=== PATIENT | male | born 1950 | race Caucasian/White ===

== ENCOUNTER 2018-09-04 19:03 | Emergency (ER) | payer OTHER, MEDICAID ==
--- NOTE | 2018-09-04 19:08 | EDPHY ---
H & P Time Seen by Provider: 09/04/18 19:06 HPI/ROS: CHIEF COMPLAINT: Intoxication HISTORY OF PRESENT ILLNESS: Patient is a 68-year-old homeless man who is brought to the emergency department by EMS for intoxication. He was at the homeless residential but was intoxicated and they called EMS. EMS felt that he could not walk on his own and so brought him here. The patient has no complaints. He does not wish to be here. He denies pain or injury. No recent illness. Vital signs of blood sugar normal for EMS. Severity: Moderate Modifying factors: None REVIEW OF SYSTEMS: Unable to obtain secondary to condition EXAM: GENERAL: Well-appearing, intoxicated and in no acute distress. HEAD: Atraumatic, normocephalic. EYES: Pupils equal round and reactive to light, extraocular movements intact, sclera anicteric, conjunctiva are normal. ENT: TMs normal, nares patent, oropharynx clear without exudates. Moist mucous membranes. NECK: Normal range of motion, supple without lymphadenopathy or JVD. LUNGS: Breath sounds clear to auscultation bilaterally and equal. No wheezes rales or rhonchi. HEART: Regular rate and rhythm without murmurs, rubs or gallops. ABDOMEN: Soft, nontender, normoactive bowel sounds. No guarding, no rebound. No masses appreciated. BACK: No CVA tenderness, no spinal tenderness, step-offs or deformities EXTREMITIES: Normal range of motion, no pitting or edema. No clubbing or cyanosis. NEUROLOGICAL: Cranial nerves II through XII grossly intact. Slightly slurred speech, slightly unsteady gait. 5/5 strength, normal movement in all extremities, normal sensation, normal reflexes PSYCH: Normal mood, normal affect. SKIN: Warm, dry, normal turgor, no visible rashes or lesions. Source: Patient, EMS Exam Limitations: Intoxication - Medical/Surgical History Hx Asthma: No Hx Chronic Respiratory Disease: No Hx Diabetes: No Hx Cardiac Disease: No Hx Renal Disease: No Hx Cirrhosis: No Hx Alcoholism: Yes Hx HIV/AIDS: No Hx Splenectomy or Spleen Trauma: No Other PMH: unknown - Family History Significant Family History: No pertinent family hx - Social History Smoking Status: Unknown if ever smoked Alcohol Use: Heavy Constitutional: Initial Vital Signs Heart Rate 87 09/04/18 19:18 Respiratory Rate 16 09/04/18 19:18 Blood Pressure 177/113 H 03/16/19 19:18 O2 Sat (%) 98 09/04/18 19:18 O2 Delivery Mode Room Air Allergies/Adverse Reactions: ARB-Angiotensin Receptor Antagonist Allergy (Severe, Verified 09/05/18 05:46) Swelling/neck,face,throat lisinopril Allergy (Severe, Verified 09/05/18 05:46) arb Allergy (Uncoded 09/05/18 05:46) Home Medications: Medication Instructions Recorded NK [No Known Home Meds] 10/29/16 Fluticasone Nasal [Flonase Nasal 1 - 2 sprays NASAL BID PRN 05/13/18 [place]] Omeprazole 20 mg PO DAILY 05/13/18 Acetaminophen [Tylenol 325mg (*)] 650 mg PO Q4HRS PRN tab 05/20/18 Calcium Carbonate [Oyster Shell 500 mg PO BIDMEAL tab 05/20/18 Calcium 500 mg (*)] Calcium Carbonate [Tums 500MG (*)] 500 mg PO TID PRN tab.chew 05/20/18 Metoprolol Tartrate [Lopressor 25 25 mg PO BID #60 tab 05/20/18 mg (*)] Nicotine [Nicoderm Cq 21 mg (*)] 21 mg TD DAILY patch 05/20/18 Thiamine HCl [Vitamin B-1] 100 mg PO DAILY tab 05/20/18 Medical Decision Making ED Course/Re-evaluation: Patient is awake and alert. He has no complaints. He is able to ambulate. Will discharge at this time. Differential Diagnosis: Partial list of the Differential diagnosis considered include but were not limited to; intoxication, polysubstance abuse and although unlikely based on the history and physical exam, I also considered head injury, infection. Departure - Departure Disposition: Home, Routine, Self-Care Clinical Impression: Alcoholic intoxication Qualifiers: Complication of substance-induced condition: uncomplicated Qualified Code(s): F10.920 - Alcohol use, unspecified with intoxication, uncomplicated Condition: Fair Instructions: Alcohol Intoxication (ED) Referrals: Patient,NotPresent [Unknown] - As per Instructions [facility],. [Clinic] - As per Instructions
[2018-09-04 19:20] VITALS: BP 177/113
== END 2018-09-04 20:02 | disposition home or self-care (01) ==
LOC: EDUNIT#
DX: F10.920 Alcohol use, unspecified with intoxication, uncomplicated (principal); Z59.0 Homelessness

== ENCOUNTER 2018-09-05 05:36 | Emergency (ER) | payer OTHER, MEDICAID ==
[2018-09-05] MEDS ORDERED: chlordiazePOXIDE 25 MG CAP ONE (05:43)
[2018-09-05] MEDS ORDERED: CHLORDIAZEPOXIDE 25MG PREPK#6 BTL TAKEHOME ONE ×2 (05:43→05:48)
[2018-09-05] MEDS ORDERED: chlordiazePOXIDE 25 MG CAP PO ONE (05:48)
[2018-09-05] MEDS ORDERED: IPRATROPIUM/ALBUTEROL 3 ML DEYVIAL ONE (06:35)
[2018-09-05] MEDS ORDERED: IPRATROPIUM/ALBUTEROL 3 ML DEYVIAL IH ONE ×2 (06:37→06:39)
[2018-09-05] MEDS ORDERED: ALBUTEROL INH PREPACK MDI TAKEHOME ONE (06:57)
--- NOTE | 2018-09-05 06:57 | EDPHY ---
H & P Stated Complaint: "can't walk" pt ambulatory without assist. Pt has congested cough, ETOH Time Seen by Provider: 09/05/18 05:41 HPI/ROS: HPI The patient presents with concern for alcohol withdrawal, brought [facility] ambulance [facility] because of difficulty walking. According to the paramedics the patient was unstable on his feet and somewhat tremulous. The patient is able to walk here and has been standing without difficulty. He says that he does feel like he is withdrawing from alcohol and had about 10 drinks yesterday. He has not had any falls. He is complaining of a cough which is productive which has been present for several months. He was admitted to the hospital in April and had an aspiration pneumonia requiring intubation. He has not had any fever or shortness of breath.. He was seen in the emergency department yesterday for alcohol intoxication and was discharged to the [facility]. REVIEW OF SYSTEMS 10 systems were reviewed and negative with the exception of the elements mentioned in the history of present illness. PMHx: History of aspiration pneumonia causing hypoxemic respiratory failure requiring intubation in April of 2018 Soc Hx: Homeless, history of alcohol abuse PHYSICAL General Appearance: Alert, no distress Eyes: Pupils equal and round no pallor or injection ENT, Mouth: Mucous membranes moist Respiratory: There are no retractions, lungs are clear to auscultation Cardiovascular: Regular rate and rhythm Gastrointestinal: Abdomen is soft and non-tender, no masses, bowel sounds normal Neurological: A&O, moves all extremities, tongue wag is present, slight hand tremor Skin: Warm and dry, no rashes Musculoskeletal: Neck is supple non tender Extremities: symmetrical, full range of motion Psychiatric: Patient is oriented X 3, there is no agitation Source: Patient, EMS, Old records Exam Limitations: No limitations - Personal History Current Tetanus/Diphtheria Vaccine: Yes Current Tetanus Diphtheria and Acellular Pertussis (TDAP): Yes - Medical/Surgical History Hx Asthma: No Hx Chronic Respiratory Disease: No Hx Diabetes: No Hx Cardiac Disease: No Hx Renal Disease: No Hx Cirrhosis: No Hx Alcoholism: Yes Hx HIV/AIDS: No Hx Splenectomy or Spleen Trauma: No Other PMH: alcoholism - Social History Smoking Status: Unknown if ever smoked Constitutional: Initial Vital Signs Temperature (C) 36.8 C 09/05/18 05:47 Heart Rate 105 H 09/05/18 05:47 Respiratory Rate 20 09/05/18 05:47 Blood Pressure 166/108 H 09/05/18 05:47 O2 Sat (%) 90 L 09/05/18 05:47 O2 Delivery Mode Room Air Allergies/Adverse Reactions: ARB-Angiotensin Receptor Antagonist Allergy (Severe, Verified 09/05/18 05:46) Swelling/neck,face,throat lisinopril Allergy (Severe, Verified 09/05/18 05:46) arb Allergy (Uncoded 09/05/18 05:46) Home Medications: Medication Instructions Recorded NK [No Known Home Meds] 10/29/16 Fluticasone Nasal [Flonase Nasal 1 - 2 sprays NASAL BID PRN 05/13/18 [place]] Omeprazole 20 mg PO DAILY 05/13/18 Acetaminophen [Tylenol 325mg (*)] 650 mg PO Q4HRS PRN tab 05/20/18 Calcium Carbonate [Oyster Shell 500 mg PO BIDMEAL tab 05/20/18 Calcium 500 mg (*)] Calcium Carbonate [Tums 500MG (*)] 500 mg PO TID PRN tab.chew 05/20/18 Metoprolol Tartrate [Lopressor 25 25 mg PO BID #60 tab 05/20/18 mg (*)] Nicotine [Nicoderm Cq 21 mg (*)] 21 mg TD DAILY patch 05/20/18 Thiamine HCl [Vitamin B-1] 100 mg PO DAILY tab 05/20/18 Medical Decision Making - Diagnostics Imaging Results: Chest x-ray two views shows no infiltrate, no effusion, interpreted by me, radiology interpretation is pending. Imaging: I viewed and interpreted images myself Differential Diagnosis: This is a 68-year-old male with history of homelessness, alcohol abuse, aspiration pneumonia who presents brought in by ambulance from the [facility] because of difficulty walking. Here, we have observed him walking without difficulty. He has a normal gait. He has not had any falls. As he does appear to be in alcohol withdrawal with mild tachycardia, hypertension, hand tremor. I will give him a dose of Librium for this. He is also complaining of a cough which she has had for several months. I have performed a chest x-ray and this is unremarkable. He improved after receiving a DuoNeb. His oxygen saturation is about 90%. As he was admitted for an aspiration pneumonia requiring intubation, he may be still recovering from this. I will discharge him with an albuterol inhaler as well as Librium. He can return to the [facility]. - Data Points Medications Given: Discontinued Medications Albuterol/Ipratropium (Duoneb) 3 ml IH EDNOW ONE Stop: 09/05/18 06:38 Last Admin: 09/05/18 06:38 Dose: 3 ml Chlordiazepoxide (Librium 25 Mg Prepack#6) 1 btl TAKEHOME EDNOW ONE Stop: 09/05/18 05:49 Last Admin: 09/05/18 05:51 Dose: 1 btl Chlordiazepoxide HCl (Librium) 50 mg PO EDNOW ONE Stop: 09/05/18 05:49 Last Admin: 09/05/18 05:51 Dose: 50 mg Departure - Departure Disposition: Home, Routine, Self-Care Clinical Impression: Cough Alcohol withdrawal Qualifiers: Complication of substance-induced condition: uncomplicated Qualified Code(s): F10.230 - Alcohol dependence with withdrawal, uncomplicated Condition: Good Instructions: Chlordiazepoxide/Clidinium (By mouth), Albuterol (By breathing), Alcohol Withdrawal (ED) Additional Instructions: Please return to the emergency department if your worse in any way. Referrals: [facility] [Outside] - As per Instructions [facility],. [Clinic] - As per Instructions
[2018-09-05 07:13] VITALS: BP 149/64
== END 2018-09-05 07:13 | disposition home or self-care (01) ==
LOC: EDUNIT#
DX: R05 Cough (principal); R91.1 Solitary pulmonary nodule; F10.230 Alcohol dependence with withdrawal, uncomplicated; Z87.01 Personal history of pneumonia (recurrent); Z59.0 Homelessness

== ENCOUNTER 2018-09-13 16:38 | Inpatient (IN) | payer OTHER, MEDICAID ==
[2018-09-13] MEDS ORDERED: LORazepam 2 MG/ML INJ ONE (16:50)
[2018-09-13] MEDS ORDERED: ONDANSETRON 4 MG/2 ML VIAL ONE (16:51)
[2018-09-13] MEDS ORDERED: NS 1,000 ML IV ONE ×2 (17:00→17:10)
[2018-09-13] MEDS ORDERED: LORazepam 2 MG/ML INJ IVP ONE (17:00)
[2018-09-13] MEDS ORDERED: ONDANSETRON 4 MG/2 ML VIAL IVP ONE (17:00)
--- NOTE | 2018-09-13 17:05 | EDPHY ---
H & P Stated Complaint: N/V/D x 1 week and CP just [employer] Time Seen by Provider: 09/13/18 16:50 HPI/ROS: CHIEF COMPLAINT: Nausea, vomiting, and diarrhea HISTORY OF PRESENT ILLNESS: This is a 68-year-old male with a history of alcohol abuse referred to the emergency department from [facility] where he was initially evaluated. He was transported by ambulance. The patient is complaining of nausea, vomiting and diarrhea for the past week. Reportedly at [facility] he was noted to have a systolic blood pressure of 80, 90 over 42 in the ambulance. Patient tells me that he was started on lisinopril for hypertension about 6 days ago. He takes it in the morning but thinks that he might have vomited after taking this medicine. Patient tells me that he has not had any alcohol for the past 7 or 8 days. He reports drinking 5-6 drinks daily prior to that. He has been seen in this emergency department in the past with alcohol intoxication. He is on domicile. Patient also tells me that he has a recent history of pneumonia but had a clear chest x-ray sometime within the last week or so. When the patient arrives here is noted to have a blood pressure of 136/87. While in the ambulance he reported lower substernal chest pain (versus midepigastric pain). He described the same to me and also reported some pain into his left shoulder and jaw. He has no known cardiac history. REVIEW OF SYSTEMS: A ten system review of systems was performed and is negative with the exception of the items mentioned in the HPI. Past medical history: 1. Alcohol abuse 2. Hypertension Past surgical history: Family history: Social history: He is on domicile. Has a history of alcohol abuse. He does not use tobacco products. General Appearance: Alert. Vital signs reviewed. Blood pressure 136/87, heart rate 110. Eyes: Pupils equal and round, no conjunctival injection, no discharge. Anicteric. ENT, Mouth: Mucous membranes are dry, no oropharyngeal erythema or edema. Neck: No lymphadenopathy, supple. Respiratory: Lungs are clear to auscultation; no wheezes, rales, or rhonchi. Cardiovascular: Regular rate and rhythm; no murmur, rub, or gallop. Gastrointestinal: Abdomen is soft and nontender, no masses or organomegaly, bowel sounds normal. Skin: Warm and dry, no rashes on exposed skin, normal color. Back: Nontender to palpation over the thoracolumbar spine. No CVAT. Extremities: No lower extremity edema, no calf tenderness or swelling. Neurological: Alert and oriented. Moving all four extremities easily and equally. Psychiatric: Normal affect. - Personal History Current Tetanus Diphtheria and Acellular Pertussis (TDAP): Unsure - Medical/Surgical History Hx Asthma: No Hx Chronic Respiratory Disease: No Hx Diabetes: No Hx Cardiac Disease: No Hx Renal Disease: No Hx Cirrhosis: No Hx Alcoholism: Yes Hx HIV/AIDS: No Hx Splenectomy or Spleen Trauma: No Other PMH: alcoholism, HTN - Social History Smoking Status: Former smoker Constitutional: Initial Vital Signs Temperature (C) 36.9 C 09/13/18 16:48 Heart Rate 110 H 09/13/18 16:48 Respiratory Rate 16 09/13/18 16:48 Blood Pressure 136/87 H 09/13/18 16:48 O2 Sat (%) 94 09/13/18 16:48 O2 Delivery Mode Nasal Cannula O2 (L/minute) 2 Allergies/Adverse Reactions: No Known Allergies Allergy (Unverified 09/13/18 17:17) Home Medications: Medication Instructions Recorded FLUoxetine [Prozac 20 MG (*)] 20 mg PO DAILY 09/13/18 Lisinopril [Zestril 20 mg (*)] 20 mg PO DAILY 09/13/18 Medical Decision Making - Diagnostics EKG Interpretation: 12 lead EKG is interpreted in [place] by emergency department physician. It shows sinus tachycardia with a rate of 107. No acute ischemic changes. I also reviewed 2nd EKG that was performed. There were no significant changes between the 2. ED Course/Re-evaluation: 68-year-old male with nausea, vomiting, diarrhea for the past week. As a result he has not had any alcohol during that time. Abdominal exam is unremarkable. He was not hypotensive on arrival. [facility]orted[facility]. He was tachycardic. I am concerned about the possibility of withdrawal. However, he also complained of chest pain. EKG without ischemic changes. He has a slightly elevated troponin 0.11. When he complained of some pain extending into his jaw a repeat EKG was performed and is unchanged. In addition, he has an elevated D-dimer at 4.6. Unfortunately, his creatinine is 4.1. I think that CT angiogram with IV contrast would be ill advised that he may require testing for PE. He is not hypoxic. Chest x-ray is without evidence of infiltrate. He is being admitted to the hospital for evaluation of above problems. He has not vomited in the department. It is certainly possible that what he is describing his chest pain is actually midepigastric or upper abdominal pain. LFTs and lipase are relatively unremarkable. Troponin will need to be trended. As above, troponin mildly elevated at 0.11. This could be related to his elevated creatinine, rather than indicative of cardiac injury. Has been tachycardic. It is unclear whether or not his kidney injury is related to his recent GI illness and dehydration. He was recently started on lisinopril, which could be the culprit. He has acute kidney injury with a creatinine of 4.1. He has not had vomiting or diarrhea in the emergency department. His abdomen is nontender at the time of my exam is. He was serially examined. This illness could have been a gastroenteritis. Again, alcohol withdrawal is a strong consideration in this patient who has a long history of alcohol dependence. Differential Diagnosis: Chest pain including but not limited to myocardial ischemia, pulmonary embolus, chest wall pain, pleural inflammation and pulmonary infectious causes. - Data Points Laboratory Results: Laboratory Results 09/13/18 16:45 09/13/18 16:45 Medications Given: Acetaminophen (Tylenol) 650 mg PO Q4HRS PRN PRN Reason: Pain, Mild/Fever, Can Take PO Stop: 03/12/19 17:58 Last Admin: 09/14/18 09:45 Dose: 650 mg Aspirin (Aspirin) 325 mg PO DAILY JYOTI Stop: 03/12/19 17:59 Last Admin: 09/14/18 09:39 Dose: 325 mg Folic Acid (Folic Acid) 1 mg PO DAILY JYOTI Stop: 03/13/19 08:59 Last Admin: 09/14/18 09:39 Dose: 1 mg Heparin Sodium (Porcine) (Heparin Sc Injection) 5,000 unit SC Q8HRS JYOTI Stop: 03/12/19 21:59 Last Admin: 09/14/18 13:11 Dose: 5,000 unit Famotidine/Sodium Chloride (Pepcid 20 Mg (Premix)) 50 mls @ 200 mls/hr IV HS JYOTI Stop: 03/12/19 20:59 Last Admin: 09/13/18 22:18 Dose: 50 mls Sodium Chloride (Ns) 1,000 mls @ 150 mls/hr IV CONT JYOTI Stop: 03/12/19 17:59 Last Admin: 09/14/18 14:54 Dose: 1,000 mls Thiamine HCl 500 mg/ Sodium (Chloride) 105 mls @ 210 mls/hr IV DAILY JYOTI Stop: 09/15/18 09:29 Last Admin: 09/14/18 09:40 Dose: 105 mls Lorazepam (Ativan Injection) 0 mg IVP Q1H PRN; Protocol PRN Reason: Alcohol Withdrawal w/IV access Stop: 03/12/19 17:58 Last Admin: 09/14/18 11:15 Dose: 2 mg Multivitamins (Tab-A-Ole) 1 each PO DAILY JYOTI Stop: 03/13/19 08:59 Last Admin: 09/14/18 09:39 Dose: 1 each Nitroglycerin (Nitrostat) 0.4 mg SL Q5M PRN PRN Reason: Chest Pain Stop: 03/12/19 17:58 Last Admin: 09/13/18 18:59 Dose: 1 tab Discontinued Medications Sodium Chloride (Ns) 1,000 mls @ 0 mls/hr IV ONCE ONE PRN Reason: Wide Open Stop: 09/13/18 17:01 Last Admin: 09/13/18 17:01 Dose: 1,000 mls Sodium Chloride (Ns) 1,000 mls @ 0 mls/hr IV EDNOW ONE; Wide Open PRN Reason: Protocol Stop: 09/13/18 17:11 Last Admin: 09/13/18 17:35 Dose: 1,000 mls Lorazepam (Ativan Injection) 1 mg IVP EDNOW ONE Stop: 09/13/18 17:01 Last Admin: 09/13/18 17:01 Dose: 1 mg Ondansetron HCl (Zofran) 4 mg IVP EDNOW ONE Stop: 09/13/18 17:01 Last Admin: 09/13/18 17:01 Dose: 4 mg Point of Care Test Results: Chemistry 09/13/18 16:58 POC Troponin I 0.11 ng/mL H ng/mL (0.00-0.08) Departure - Departure Disposition: [facility] Clinical Impression: Acute kidney injury Chest pain Qualifiers: Chest pain type: unspecified Qualified Code(s): R07.9 - Chest pain, unspecified Condition: Fair
[2018-09-13 17:13] LABS: PLATELET COUNT 173 10^3/uL (150-400)
[2018-09-13] MEDS ORDERED: MAG HYDROX/AL HYDROX/SIMETH 30 ML UDCUP PO PRN (17:59)
[2018-09-13] MEDS ORDERED: NITROGLYCERIN 0.4 MG BTL SL PRN (17:59)
[2018-09-13] MEDS ORDERED: oxyCODONE IR 5 MG TAB PO PRN (17:59)
[2018-09-13] MEDS ORDERED: HYDROmorphONE/DILAUDID 1 MG/ML INJ IVP PRN (17:59)
[2018-09-13] MEDS ORDERED: LORazepam 2 MG/ML INJ IVP PRN (17:59)
[2018-09-13] MEDS ORDERED: FLUMAZENIL 0.5 MG/5 ML MDV IVP PRN (17:59)
[2018-09-13] MEDS ORDERED: PROMETHAZINE HCL 25 MG/ML INJ IVP PRN (17:59)
[2018-09-13] MEDS ORDERED: ONDANSETRON DISINTEGRATING 4 MG TAB PO PRN (17:59)
[2018-09-13] MEDS ORDERED: ONDANSETRON 4 MG/2 ML VIAL IVP PRN (17:59)
[2018-09-13] MEDS: ASPIRIN 325 MG TAB PO SCH (18:25)
--- NOTE | 2018-09-13 18:29 | PDGENHP ---
History and Physical - Chief Complaint n/v/d/chest pain - History of Present Illness 68 yo M with PMH of HTN, homelessness and alcohol abuse sent here from [facility] where he presented complaining of nausea, vomiting and diarrhea for one week. He notes that he has been unable to eat or drink at all for a week, states he has not been able to hold anything down. He also has not had alcohol for the last week per his report due to not being able to eat or drink. He went to [facility] for this today and they felt he required ER evaluation due to low BP while in clinic (reportedly 80s systolic, though systolics of 130 on arrival here) and he was sent here in an ambulance. He notes that en route in the ambulance he developed chest versus upper abdominal and left shoulder pain that has been present since he arrived. He denies any fever or chills, he denies any pain with urination but notes that he has not been urinating very much today or recently--he thinks he urinated with his last BM but really can't tell me when that was but states it was today. He is somewhat somnolent and his speech is a bit slurred on my evaluation, he denies any withdrawal symptoms currently although he has had severe withdrawal in the past. He does take lisinopril for HTN and states he has been taking his BP meds though he is confused so unclear if he is answering appropriately. History Information - Allergies/Home Medication List Allergies/Adverse Reactions: No Known Allergies Allergy (Unverified 09/13/18 17:17) Home Medications: FLUoxetine [Prozac 20 MG (*)] 20 mg PO DAILY 09/13/18 [Last Taken Unknown] Lisinopril [Zestril 20 mg (*)] 20 mg PO DAILY 09/13/18 [Last Taken Unknown] I have personally reviewed and updated: family history, medical history, social history, surgical history - Past Medical History hypertension, psychiatric history Additional medical history: alcohol abuse and withdrawal. alcoholic hepatitis - Surgical History Reports: no pertinent surgical hx - Family History Positive for: non-pertinent - Social History Smoking Status: Former smoker Alcohol Use: Heavy Drug Use: None Additional social history: homeless, resides in group home Review of Systems Review of Systems: ROS: 10pt was reviewed & negative except for what was stated in HPI & below Physical Exam Physical Exam: Temp Pulse Resp BP Pulse Ox 36.9 C 110 H 16 136/87 H 94 09/13/18 16:48 09/13/18 16:48 09/13/18 16:48 09/13/18 16:48 09/13/18 16:48 Constitutional: chronically ill appearing, unkempt Eyes: PERRL, anicteric sclera Ears, Nose, Mouth, Throat: poor dentition, dry mucous membranes Cardiovascular: no murmur, rub, or gallop, tachycardia, No edema Respiratory: no respiratory distress, reduced air movement Gastrointestinal: normoactive bowel sounds, tenderness, No guarding, No rebound Genitourinary: no bladder tenderness Skin: warm, normal color Musculoskeletal: full muscle strength Neurologic: CN II-XII Intact, No AAOx3 Psychiatric: encephalopathic Lab Data & Imaging Review 09/13/18 16:45 09/13/18 16:45 WBC 13.39 10^3/uL (3.80-9.50) H 09/13/18 16:45 RBC 4.73 10^6/uL (4.40-6.38) 09/13/18 16:45 Hgb 16.0 g/dL (13.7-17.5) 09/13/18 16:45 Hct 46.8 % (40.0-51.0) 09/13/18 16:45 MCV 98.9 fL (81.5-99.8) 09/13/18 16:45 MCH 33.8 pg (27.9-34.1) 09/13/18 16:45 MCHC 34.2 g/dL (32.4-36.7) 09/13/18 16:45 RDW 14.6 % (11.5-15.2) 09/13/18 16:45 Plt Count 173 10^3/uL (150-400) 09/13/18 16:45 MPV 11.8 fL (8.7-11.7) H 09/13/18 16:45 Neut % (Auto) Not Reported 09/13/18 16:45 Lymph % (Auto) Not Reported 09/13/18 16:45 Screven % (Auto) Not Reported 09/13/18 16:45 Eos % (Auto) Not Reported 09/13/18 16:45 Baso % (Auto) Not Reported 09/13/18 16:45 Nucleat RBC Rel Count Not Reported 09/13/18 16:45 Absolute Neuts (auto) Not Reported 09/13/18 16:45 Absolute Lymphs (auto) Not Reported 09/13/18 16:45 Absolute Monos (auto) Not Reported 09/13/18 16:45 Absolute Eos (auto) Not Reported 09/13/18 16:45 Absolute Basos (auto) Not Reported 09/13/18 16:45 Absolute Nucleated RBC Not Reported 09/13/18 16:45 Immature Gran % Not Reported 09/13/18 16:45 Seg Neutrophils % 63.0 % 09/13/18 16:45 Band Neutrophils % 15.0 % 09/13/18 16:45 Lymphocytes % 15.0 % 09/13/18 16:45 Monocytes % 7.0 % 09/13/18 16:45 Eosinophils % 0.0 % 09/13/18 16:45 Basophils % 0.0 % 09/13/18 16:45 Metamyelocytes % 0.0 % 09/13/18 16:45 Myelocytes % 0.0 % 09/13/18 16:45 Promyelocytes % 0.0 % 09/13/18 16:45 Blast Cells % 0.0 % 09/13/18 16:45 Immature Gran # Not Reported 09/13/18 16:45 Absolute Seg Neuts 8.44 10^3/uL (1.70-6.50) H 09/13/18 16:45 Absolute Band Neuts 2.01 10^3/uL (0.00-0.70) H 09/13/18 16:45 Absolute Lymphocytes 2.01 10^3/uL (1.00-3.00) 09/13/18 16:45 Absolute Monocytes 0.94 10^3/uL (0.30-0.80) H 09/13/18 16:45 Absolute Eosinophils 0.00 10^3/uL (0.03-0.40) L 09/13/18 16:45 Absolute Basophils 0.00 10^3/uL (0.02-0.10) L 09/13/18 16:45 Absolute Metamyelocyte 0.00 10^3/mL (0.00-0.00) 09/13/18 16:45 Absolute Myelocytes 0.00 10^3/mL (0.00-0.00) 09/13/18 16:45 Absolute Promyelocytes 0.00 10^3/uL (0.00-0.00) 09/13/18 16:45 Absolute Plasma Cells 0.00 10^3/uL (0.00-0.00) 09/13/18 16:45 Nucleated RBCs 0 /100 WBC (0-0) 09/13/18 16:45 Absolute Blast Cells 0.00 10^3/uL (0.00-0.00) 09/13/18 16:45 Plasma Cells % 0.0 % 09/13/18 16:45 Platelet Estimate ADEQUATE (ADEQ) 09/13/18 16:45 Hypochromasia 1+ H 09/13/18 16:45 Oval Macrocytes 2+ H 09/13/18 16:45 Stomatocytes 1+ H 09/13/18 16:45 D-Dimer 4.46 ug/mLFEU (0.00-0.50) H 09/13/18 16:45 Sodium 135 mEq/L (135-145) 09/13/18 16:45 Potassium 4.0 mEq/L (3.5-5.2) 09/13/18 16:45 Chloride 91 mEq/L (97-110) L 09/13/18 16:45 Carbon Dioxide 24 mEq/l (22-31) 09/13/18 16:45 Anion Gap 20 mEq/L (6-14) H 09/13/18 16:45 BUN 70 mg/dL (7-23) H 09/13/18 16:45 Creatinine 4.1 mg/dL (0.7-1.3) H 09/13/18 16:45 Estimated GFR 15 09/13/18 16:45 Glucose 92 mg/dL (70-100) 09/13/18 16:45 Calcium 9.6 mg/dL (8.5-10.4) 09/13/18 16:45 POC Troponin I 0.11 ng/mL (0.00-0.08) H 09/13/18 16:58 Visualized and Interpreted Chest x-ray results: Yes Chest X-Ray results: no infiltrate Visualized and Interpreted EKG results: Yes EKG additional interpertation: sinus tachycardia Assessment & Plan Assessment: 68 yo M with PMH of etoh abuse, homelessness presenting with c/o n/v/d x 1 week with NATALIA and more recent development of chest pain # n/v/d: present x 1 week without ability to tolerate PO per his report. Abdominal exam relatively benign but does have some upper abdominal tenderness. Will add LFTs, lipase, lactic acid to labs and check an abdominal plain film to r/o obstruction. GI pathogen panel ordered as well. IVF, NPO, antiemetics as needed. # natalia: creatinine of 4.1 in the setting of above with addition of being on lisinopril the likely etiology, reportedly was hypotensive at clinic but here has been normal to high. Will get bladder scan, UA, urine Na and creatinine and trend overnight with IVF overnight. If not improving as expected will need renal consultation in am. # chest pain: with elevated troponin on arrival of 0.1 although patient is reporting that the chest or upper abdominal pain just came on during transportation, ecg not clearly ischemic, will monitor in PCU on tele, trend troponin and serial ecg. Echo in am, cardiology consulted. D dimer significantly elevated at 4.5 but given NATALIA CTA not possible currently. At this point, do not have high suspicion for PE with no hypoxia and abrupt onset of chest/upper abdominal pain -legs without edema or signs of DVT so will hold off on US as well. Echo in am, consider VQ if echo w/signs of right heart strain. # metabolic encephalopathy: patient with difficulty maintaining alertness and some slurred speech, he denies recent alcohol use or withdrawal though has had severe withdrawal in the past. Other than speech slurring no focal neurological findings. Will check BAL, drug screen and start CIWA. Will get head CT given his hx of alcohol abuse and inability to provide much of a history regarding potential recent trauma etc. # HTN: holding lisinopril given NATALIA, will give PRN if sbp > 170 # IP status, will need > 48 hours stay for eval/mgmt of above Patient new to my care. Old records reviewed and summarized as above. Care plan reviewed with ER doctor as above.
--- NOTE | 2018-09-13 20:53 | CPEKG ---
Test Reason : OPEN Blood Pressure : / mmHG Vent. Rate : 107 BPM Atrial Rate : 107 BPM P-R Int : 134 ms QRS Dur : 091 ms QT Int : 329 ms P-R-T Axes : 067 058 031 degrees QTc Int : 439 ms Sinus tachycardia Probable left atrial enlargement Confirmed by Manuela Chilel ([id number]) on 09/13/2018 8:53:01 PM Referred By: MANUELA CHILEL Confirmed By:Manuela Chilel
[2018-09-13] MEDS: THIAMINE HCL 500 MG in NS 100 ML IV SCH (21:15)
[2018-09-13] MEDS: LORazepam 2 MG/ML INJ IVP PRN (21:16)
[2018-09-13] MEDS: HEPARIN 5,000 UNIT/0.5 ML INJ SC SCH (21:17)
[2018-09-13] MEDS: FAMOTIDINE 20 MG/NACL 50 ML IV SCH (22:18)
[2018-09-14] MEDS: LORazepam 2 MG/ML INJ IVP PRN ×2 (03:52→11:15)
[2018-09-14] MEDS: NS 1,000 ML IV SCH ×2 (03:52→14:54)
[2018-09-14 04:33] LABS: PLATELET COUNT 140 10^3/uL (150-400)
[2018-09-14] MEDS: HEPARIN 5,000 UNIT/0.5 ML INJ SC SCH ×3 (05:47→21:11)
[2018-09-14] MEDS ORDERED: ENOXAPARIN 40 MG/0.4 ML SYR SC SCH (09:00)
--- NOTE | 2018-09-14 09:00 | PDMN ---
Medical Necessity Medical necessity: Pt meets IP criteria per MD & MCG [id number]; est los >2 mn for eval/tx of acute renal failure w/metabolic encephalopathy, n/v/d, tachycardia & chest pain; admit for further workup/monitoring, Cardiology consult, possible Renal consult, IVFs & CIWA protocol; hx alcohol abuse & homelessness; per H&P & order 09/13/18
--- NOTE | 2018-09-14 09:20 | ASMTLACE ---
SHAD Acuity / Level of Answers: Yes Care: Did the patient have an inpatient admission? Comorbidities - select Answers: Other Notes: HTN all that apply # of Emergency department Answers: 5-8 visits in the last 6 months Social determinants Answers: History of substance abuse (ETOH, street drugs, prescription drugs, etc.) Homelessness (street, correction) Mental health diagnosis (anxiety, depression, pers onality disorders, etc.) Score: 17 Date Signed: 09/14/2018 09:19 AM Electronically Signed By:Marni Ferguson
[2018-09-14] MEDS: MULTIVITAMINS 1 EACH TAB PO SCH (09:39)
[2018-09-14] MEDS: ASPIRIN 325 MG TAB PO SCH (09:39)
[2018-09-14] MEDS: FOLIC ACID 1 MG TAB PO SCH (09:39)
[2018-09-14] MEDS: THIAMINE HCL 500 MG in NS 100 ML IV SCH (09:40)
[2018-09-14] MEDS: ACETAMINOPHEN 325 MG TAB PO PRN ×2 (09:45→21:12)
--- NOTE | 2018-09-14 12:40 | ECHO ---
[email or web address] [address] Main: [phone] Echocardiography Examination Name: HIEU STARKEY MR#: [id number] Study Date: 09/14/2018 Study Time: 11:44 AM Date of : 1950 Age: 68 year(s) Height: 170.2 cm (67 in.) Weight: 68.04 kg (150 lb.) BSA: 1.79 m2 Gender: Male Examination: Echo Contrast: Image Quality: Fair Rhythm: Heart Rate: BP: 89 mmHg/57 mmHg Indication: Elevated dimer/chest pain Procedure Staff Referring Physician: Excavator Operator: Reading Physician: Orestes Joy MD Requesting Provider: Indication: Elevated dimer/chest pain Measurements Chambers AV/MV Label Value Normal Value Label Value Normal Value EF lower range (%) 60 % AV PGmean 3 mmHg EF upper range (%) 65 % AV Vmax 1.25 m/s IVSd, 2D 1 cm (0.6cm - 1.1cm) MV A Vmax 0.96 m/s LVDd, 2D 4.7 cm (4.2cm - 5.9cm) MV E' lateral 0.05 m/s LVDs, 2D 2.6 cm (2.1cm - 4cm) MV E' mean 0.05 m/s LVPWd, 2D 0.8 cm (0.6cm - 1cm) MV E' septal 0.05 m/s LADs, 2D 2.4 cm (3cm - 4cm) MV E Vmax 0.76 m/s Additional Vessels MV E/A 0.79 Label Value Normal Value MV E/E' lateral 14.4 AoAsc 3.1 cm MV E/E' mean 15.2 AoRoot, MM 3.7 cm (2.2cm - 3.7cm) MV E/E' septal 14.9 (0.45 - 1.25) Conclusions Overall Conclusions: no pericardial effusion. Concentric left ventricular hypertrophy with ejection fraction of 60-65%. Mild mitral regurgitation. Ascending aorta measures 3.1 cm. Findings Patient: HIEU STARKEY Study Date: 09/14/2018 Page 1 of 2 11:44 AM Left Ventricle: Diastolic dysfunction is indeterminate.. Normal global systolic left ventricular function. EF range is estimated at 60 % - 65 %. There is mild concentric left ventricular hypertrophy. Right Ventricle: Normal size right ventricle. Left Atrium: The left atrium is normal in size. Right Atrium: The right atrium is normal in size. Mitral Valve: Mild mitral annular calcification.. Mild mitral regurgitation. Aortic Valve: Aortic leaflets are structurally normal. The aortic valve is trileaflet. Tricuspid Valve: Tricuspid valve leaflets are structurally normal. Trivial tricuspid regurgitation. Aorta: The aortic root size in M-mode measures 3.7 cm. The ascending aorta measures 3.1 cm. Aorta Measurements AoRoot, MM is 3.7 cm. Pericardium: A pericardial fat pad is present. Exam Details Procedure Ordered: Echo Image Quality: Fair (No Signature Object) Patient: HIEU STARKEY Study Date: 09/14/2018 Page 2 of 2 11:44 AM [id number]
--- NOTE | 2018-09-14 13:12 | GCON ---
[f rep st] CONSULTATION CARDIOLOGY CONSULTATION REFERRING PHYSICIAN: Stacey Kumar MD INDICATION FOR CONSULTATION: Chest pain. HISTORY OF PRESENT ILLNESS: The patient is a 68-year-old gentleman with a past medical history of hy pertension, alcohol abuse, and homelessness, who presented to [facility] yesterday with complain ts of nausea, vomiting, and diarrhea x1 week. He reported that he was unable to eat or drink at all for the previous week. He states he has not had any alcohol in the last week secondary to his inabil ity to keep anything down. He was found to be hypotensive at [facility] and was subsequently br ought to [facility] via ambulance. In the ambulance, he complained of some upper abd ominal, as well as chest discomfort and left shoulder pain. Point of care troponin was mildly elevated at 0.11. Subsequent serial troponins were mildly elevated at 0.056 at 0020 hours this morning, and repeat troponin has trended down to 0.053 at 0330 hours thi s morning. Of note, these values are in the setting of acute renal failure with an initial creatinin e of 4.1, currently 3.0. Please note, at the time of my examination, he is markedly somnolent and unable to provide history. He is unable to stay awake for my exam or answer any questions appropriately, although he did deny an y complaints of chest pain or pressure. REVIEW OF SYSTEMS: Unobtainable secondary to somnolence. PAST MEDICAL HISTORY: Hypertension, alcohol abuse, alcoholic hepatitis admission in April 2018 wi th acute hypoxic respiratory failure, aspiration pneumonia, and homelessness. MEDICATIONS ON ADMISSION: Prozac 20 mg daily and lisinopril 20 mg daily. Uncertain of medical compl iance. ALLERGIES TO MEDICATION: No known allergies. SOCIAL HISTORY: He is homeless. He is an alcoholic. He has had multiple admissions over the last 2 years relating to his alcoholism. PHYSICAL EXAMINATION: VITAL SIGNS: Blood pressure currently 89/57. Previous blood pressure reading s were 129/72 and 140/84. Heart rate of 88 in sinus rhythm, respiratory rate of 16, oxygen saturatio n 95% on 1 L nasal cannula, and temperature 37.1. GENERAL: He is somnolent. He is arousable, but u nable to answer questions. NECK: There is no evidence of JVP or carotid bruits. LUNGS: Clear to a uscultation anteriorly. CARDIAC: S1 and S2. Regular rate and rhythm. No murmurs, rubs, or gallops . ABDOMEN: Soft. Bowel sounds are present. EXTREMITIES: There is no evidence of cyanosis, clubbi ng, or edema. LABORATORY DATA: Sodium of 137, potassium 3.8, BUN 70, and creatinine 3. AST 101 and ALT 63. Serum troponin was 0.056, trending down to 0.053. DATA: CT of the head demonstrates atrophy with presumed small vessel disease. Negative for hemorrha ge or mass lesion. Chest x-ray demonstrates decreased inspiratory effort with mild increase in compressive changes in th e lung bases in the setting of fibrotic changes and a moderate hiatal hernia. ECG demonstrates sinus tachycardia without ischemic changes. IMPRESSION: 1. Complaints of chest pain. 2. Mildly elevated troponin, trending down. 3. No ischemic changes on ECG. 4. Alcoholism. 5. The patient is somnolent and unable to respond to questions. In the setting of acute renal failure and dehydration, given his history of nausea, vomiting, and cordelia rrhea for 1 week prior to admission, mild troponin elevation can be explained due to acute renal fail ure. ECG is nonischemic. Preliminary report on echocardiogram is of normal wall motion. He does re spond when I ask him if he has chest pain, and he states no. He is unable to stay awake for further questioning. At this point, I do not think he requires further cardiac testing. Will reassess as he continues to wake up and consider further risk stratification. PLAN: 1. We will continue to follow along with his care. 2. No changes to medical therapy at this time. /[id number]/MODL
--- NOTE | 2018-09-14 14:58 | ASMTCMCOM ---
CM Note CM Note Notes: Pts case discussed in tx rounds. Pt is a 68 y/o man admitted for acute renal failure and chest pain. Therapies have been ordered and awaiting recommendations. Pt has a hx of etoh abuse. CM attempted to meet w/ pt but he was asleep. CM made a referral to [facility]. CM left etoh resources and educational matieral in his room. CM to follow up tomorrow. Date Signed: 09/14/2018 02:57 PM Electronically Signed By:KARLOS Yeager
--- NOTE | 2018-09-14 16:56 | HOSPPROG ---
Hospitalist Progress Note Assessment/Plan: 68 yo M with PMH of etoh abuse, homelessness presenting with c/o n/v/d x 1 week with NATALIA and more recent development of chest pain # n/v/d: present x 1 week without ability to tolerate PO per his report. Abd xray, lfts, lipase all wnl. Seems to have resolved though patient very somnolent so unable to discuss with him. # natalia: creatinine of 4.1 in the setting of above with addition of being on lisinopril the likely etiology, improving overnight with IVF and will continue , now down to 3. FEna of 1.2% but only obtained after 24 hours of IVF so unclear how meaningful. # chest pain: with elevated troponin on arrival of 0.1 and trended down since then, echo without wall motion abnormalities, cardiology has evaluated, no plan for cath currently. Did have significantly elevated dimer as well, no e/o right heart strain, no lower extremity swelling and not hypoxic, no CTA given NATALIA # metabolic encephalopathy: patient with difficulty maintaining alertness and some slurred speech, head CT negative, CIWA more elevated today and has required ativan and that is likely contributing # alcohol abuse and w/d: as above, mvi/thiamine/folate continue ciwa # HTN: holding lisinopril given NATALIA, will give PRN if sbp > 170 # anemia: has trended down a bit overnight likely dilutional, monitoring # IP status, will need > 48 hours stay for eval/mgmt of above care plan reviewed with cardiology as above. Subjective: no significant overnight events, patient remains somnolent, did have increased ciwa scores requiring ativan Objective: Vital Signs Temp Pulse Resp BP Pulse Ox 37.1 C 90 16 113/66 94 09/14/18 15:53 09/14/18 15:53 09/14/18 15:53 09/14/18 15:53 09/14/18 15:53 Laboratory Results 09/14/18 03:30 09/14/18 03:30 09/13/18 09/14/18 09/15/18 05:59 05:59 05:59 Intake Total 1999 Output Total 175 225 Balance 1825 -225 Constitutional: chronically ill appearing, unkempt Eyes: PERRL, anicteric sclera Ears, Nose, Mouth, Throat: poor dentition, dry mucous membranes Cardiovascular: no murmur, rub, or gallop, tachycardia, No edema Respiratory: no respiratory distress, reduced air movement Gastrointestinal: normoactive bowel sounds, tenderness, No guarding, No rebound Genitourinary: no bladder tenderness Skin: warm, normal color Musculoskeletal: full muscle strength Neurologic: CN II-XII Intact, No AAOx3 Psychiatric: encephalopathic ICD10 Worksheet Patient Problems: Problems Problem Status Onset Acute kidney injury Acute Chest pain Acute Alcoholic intoxication Acute Aspiration pneumonia Acute Respiratory failure Acute Severe sepsis Acute
[2018-09-14] MEDS: FAMOTIDINE 20 MG/NACL 50 ML IV SCH (21:11)
[2018-09-15] MEDS: NS 1,000 ML IV SCH (03:55)
[2018-09-15 04:36] LABS: PLATELET COUNT 155 10^3/uL (150-400)
[2018-09-15] MEDS: HEPARIN 5,000 UNIT/0.5 ML INJ SC SCH ×3 (05:48→21:27)
[2018-09-15] MEDS: ASPIRIN 325 MG TAB PO SCH (09:26)
[2018-09-15] MEDS: MULTIVITAMINS 1 EACH TAB PO SCH (09:26)
[2018-09-15] MEDS: THIAMINE HCL 500 MG in NS 100 ML IV SCH (09:26)
[2018-09-15] MEDS: FOLIC ACID 1 MG TAB PO SCH (09:26)
[2018-09-15] MEDS: HYDROCODONE/APAP 5/325 TAB PO PRN ×3 (09:57→22:02)
--- NOTE | 2018-09-15 11:42 | PDCARPN ---
Cardiology Progress Note Assessment/Plan: Assessment: 1. Chest pain 2. Alcoholism 3. Metabolic encephalopathy 4. Hypotension (resolved). BP is now elevated. I think his pain is epigastric and secondary to GERD and non cardiac in origin. Troponin elevation on admission most likely secondary to ARF with Cr of 4.0. Echo demonstrates normal wall motion. No indication for Left Heart Cath. Would not pursue further cardiac testing at this time. Regarding his BP, would start Amolodipine 5 mg daily. Would avoid Lisinopril due to his potential for dehydration given his hx of alcoholism and homelessness. Plan: -stat amlodipine 5 mg daily -No indication for further cardiac risk stratification at this time. -Will sign off. 09/15/18 11:42 Subjective: Mr. Jaime is awake and responsive this AM. He desribes burning sensation in his esophagus and pressure in esophgus that that improves with burping. His tropnin has normalized. Tele demonstrates NSR. Cr continues to improve, from 4.0 on admit to 1.6 today. Echo yesterday demonstrated normal wall motion and normal LV function. Objective: Vital Signs (8 Hrs) Temp Pulse Resp BP Pulse Ox 09/15/18 08:00 37.1 C 89 10 L 159/80 H 98 09/15/18 04:00 36.6 C 99 16 150/94 H 91 L Intake/Output (24 Hrs) 09/14/18 09/15/18 09/16/18 05:59 05:59 05:59 Intake Total 1999 3590 Output Total 175 1450 540 Balance 1825 2140 -540 Intake: IV Infused (ml) 1999 3590 Famotidine 20 mg/NaCl 50 55 ml @ 200 mls/hr IV HS JYOTI Rx#:[id number] Ns 1,000 ml @ 150 mls/hr 3435 IV CONT JYOTI Rx#: [id number] Thiamine HCl 500 mg In Ns 100 100 ml @ 210 mls/hr IV DAILY JYOTI Rx#:[id number] Output: Urine (ml) 175 1450 540 Urinal 175 1450 540 Other: Weight 68.039 kg Number of Voids Incontinence 1 Urinal 1 2 1 Number of Stools Incontinence 1 Result Diagrams: 09/15/18 03:14 09/15/18 03:14 Cardiac Labs: Cardiac Lab Results (72 Hrs) 09/15/18 09/14/1809/14/19 08:55 03:30 00:20 Troponin I 0.033 0.053 H 0.056 H - Physical Exam Constitutional: no apparent distress Cardiovascular: regular rate and rhythm, no murmurs, no rubs, no gallops Peripheral Pulses: 2+: carotid (R), carotid (L) Respiratory: clear to auscultate bilat Musculoskeletal: no muscular tenderness Neurologic: AAOx3, CN II-XII grossly intact Psychiatric: cooperative, following commands, flat affect ICD10 Worksheet Patient Problems: Problems Problem Status Onset Alcoholic intoxication Acute Chest pain Acute Acute kidney injury Acute Respiratory failure Acute Severe sepsis Acute Aspiration pneumonia Acute
--- NOTE | 2018-09-15 12:09 | HOSPPROG ---
Hospitalist Progress Note Assessment/Plan: 68 yo M with PMH of etoh abuse, homelessness presenting with c/o n/v/d x 1 week with NATALIA and more recent development of chest pain. #NATALIA: Prerenal/dehydration. Resolving. Stop IVF, liberalize PO intake. Holding ACEi. #N/V/D: Resolved. Suspect gastroenteritis. He reports norovirus was going around snf. Will keep on contact precautions while here. #Chest pain: Indeterminate trop (0.05) but TTE without WMA. Cards consulted, no ischemic eval at this time. Suspect GI related, will trial PPI. #Acute metabolic encephalopathy: Resolved. Unclear etiology, ? dehydration and benzos. #Etoh abuse: Reports he quit >1 week ago. Doesn't appear clinically to be in withdrawal. Will stop CIWA. #HTN: Holding lisinopril. Starting amlodipine 5mg qd. #Homelessness: CM aware, previously living in [facility] #Anemia: Dilutional. VTE ppx: [facility] Dispo: Remain inpatient, possibly dc tomorrow Subjective: Feeling ok. No n/v/d. Ate some food this morning. Occasional chills. States last drink was 8 days ago. Objective: Vital Signs Temp Pulse Resp BP Pulse Ox 37.1 C 89 10 L 159/80 H 98 09/15/18 08:00 09/15/18 08:00 09/15/18 08:00 09/15/18 08:00 09/15/18 08:00 Laboratory Results 09/15/18 03:14 09/15/18 03:14 09/14/18 09/15/18 09/16/18 05:59 05:59 05:59 Intake Total 1999 3590 Output Total 175 1450 540 Balance 1825 2140 -540 - Physical Exam Constitutional: no apparent distress Eyes: PERRL, anicteric sclera Ears, Nose, Mouth, Throat: moist mucous membranes, hearing normal, ears appear normal, no oral mucosal ulcers Cardiovascular: no murmur, rub, or gallop, tachycardia, No edema Respiratory: no respiratory distress, no rales or rhonchi, clear to auscultation Gastrointestinal: normoactive bowel sounds, soft, non-tender abdomen, no palpable masses, distension Genitourinary: no bladder fullness, no bladder tenderness, no renal bruits Skin: no rashes or abrasions, no fluctuance, no induration Musculoskeletal: full muscle strength Neurologic: AAOx3 Psychiatric: interacting appropriately ICD10 Worksheet Patient Problems: Problems Problem Status Onset Acute kidney injury Acute Chest pain Acute Alcoholic intoxication Acute Aspiration pneumonia Acute Respiratory failure Acute Severe sepsis Acute
[2018-09-15] MEDS ORDERED: MAG HYDROX/AL HYDROX/SIMETH 30 ML UDCUP PO ONE (18:56)
[2018-09-15] MEDS ORDERED: HYOSCYAMINE SULFATE 0.125 MG TAB PO ONE (18:56)
[2018-09-15] MEDS ORDERED: LIDOCAINE 2% VISCOUS 15 ML UDCUP PO ONE (18:56)
[2018-09-15] MEDS: PANTOPRAZOLE SODIUM 40 MG TAB PO SCH (21:27)
[2018-09-16] MEDS: HYDROCODONE/APAP 5/325 TAB PO PRN ×5 (03:38→22:46)
[2018-09-16] MEDS: HEPARIN 5,000 UNIT/0.5 ML INJ SC SCH ×3 (06:40→21:26)
[2018-09-16] MEDS ORDERED: POTASSIUM CL 20 MEQ TAB PO ONE (08:22)
--- NOTE | 2018-09-16 09:19 | ASMTCAGE ---
CAGE Do you feel you ought to Answers: Yes cut down on your drinking or drug use? Do people annoy you by Answers: Yes criticizing your drinking or drug use? Do you feel guilty about Answers: Yes your drinking or drug use? Do you drink or use drugs Answers: No first thing in the morning ([employer])? Date Signed: 09/16/2018 09:18 AM Electronically Signed By:KARLOS Yeager
--- NOTE | 2018-09-16 09:38 | ASMTCMCOM ---
CM Note CM Note Notes: CM met w/ pt for dispo planning. PT is recommending SNF. CM provided pt w/ senior blue book. Pt is agreeable to going to a SNF and interested in LTC bed. Pt also has medicaid. Referrals sent to [facility] [place], [facility], [facility], [facility], and [place]. CAGE completed. Pt reports that he would like to get sober. CM to follow. Plan: TBD Date Signed: 09/16/2018 09:38 AM Electronically Signed By:KARLOS Yeager
--- NOTE | 2018-09-16 09:43 | CPEKG ---
Test Reason : OPEN Blood Pressure : / mmHG Vent. Rate : 104 BPM Atrial Rate : 105 BPM P-R Int : 131 ms QRS Dur : 098 ms QT Int : 365 ms P-R-T Axes : 073 072 008 degrees QTc Int : 481 ms Sinus tachycardia Probable left atrial enlargement Borderline prolonged QT interval Confirmed by Jovani Balderrama ([id number]) on 09/16/2018 9:43:33 AM Referred By: Stacey Kumar Confirmed By:Jovani Balderrama
--- NOTE | 2018-09-16 09:56 | HOSPPROG ---
Hospitalist Progress Note Assessment/Plan: 68 yo M with PMH of etoh abuse, homelessness presenting with c/o n/v/d x 1 week with NATALIA and more recent development of chest pain. #Chest pain: Indeterminate trop (0.05) but TTE without WMA. CTA without PE. Cards consulted, no ischemic eval at this time. Most consistent with esophageal inflammation r/t recent vomiting. Continue PPI, add sucralfate. Check CXR given change in characteristics of sxs. #NATALIA: Prerenal/dehydration. Continues to improve. Holding ACEi. #N/V/D: Resolved. Suspect gastroenteritis. He reports [facility]. Will keep on contact precautions while here. #Acute metabolic encephalopathy: Resolved. Unclear etiology, ? dehydration and benzos. #Etoh abuse: Reports he quit >1 week ago. Doesn't appear clinically to be in withdrawal. Will stop CIWA. #HTN: Holding lisinopril. Starting amlodipine 5mg qd. #Homelessness: CM aware, previously living in [facility] #Anemia: Dilutional. #Deconditioning: PT/OT recommending SNF, CM working on referrals VTE ppx: H Dispo: Remain inpatient, possibly dc later today vs tomorrow Subjective: Still having significant pain with swallowing. However, this pain isn't midline anymore but has migrated to left side of chest. Not pleuritic or positional. Having a hard time swallowing solids and liquids 2/2 pain. Symptoms started after vomiting episodes. Objective: Vital Signs Temp Pulse Resp BP Pulse Ox 36.7 C 83 18 148/82 H 96 09/16/18 07:54 09/16/18 07:54 09/16/18 07:54 09/16/18 07:54 09/16/18 07:54 Microbiology 09/14/18 03:45 Urine Culture - Final Urine,Clean Catch Escherichia Coli Three [place] Types Laboratory Results 09/15/18 03:14 09/16/18 03:32 09/15/18 09/16/18 09/17/18 05:59 05:59 05:59 Intake Total 3590 1999 Output Total 1450 1440 225 Balance 2140 560 -225 - Physical Exam Constitutional: no apparent distress, appears nourished, not in pain Eyes: PERRL, anicteric sclera, EOMI Ears, Nose, Mouth, Throat: moist mucous membranes, hearing normal, ears appear normal, no oral mucosal ulcers Cardiovascular: regular rate and rhythym, no murmur, rub, or gallop, No edema Respiratory: no respiratory distress, no rales or rhonchi, clear to auscultation Gastrointestinal: normoactive bowel sounds, soft, non-tender abdomen, no palpable masses Genitourinary: no bladder fullness, no bladder tenderness, no renal bruits Skin: no rashes or abrasions, no fluctuance, no induration Musculoskeletal: generalized weakness, other (no ttp over chest ) Neurologic: AAOx3 Psychiatric: interacting appropriately ICD10 Worksheet Patient Problems: Problems Problem Status Onset Acute kidney injury Acute Chest pain Acute Alcoholic intoxication Acute Aspiration pneumonia Acute Respiratory failure Acute Severe sepsis Acute
[2018-09-16] MEDS: THIAMINE HCL 100 MG TAB PO SCH (10:30)
[2018-09-16] MEDS: PANTOPRAZOLE SODIUM 40 MG TAB PO SCH ×2 (10:30→21:25)
[2018-09-16] MEDS: FOLIC ACID 1 MG TAB PO SCH (10:30)
[2018-09-16] MEDS: MULTIVITAMINS 1 EACH TAB PO SCH (10:30)
[2018-09-16] MEDS ORDERED: POLYETHYLENE GLYCOL 3350 17 GM PKT PO PRN (11:04)
[2018-09-16] MEDS ORDERED: MAGNESIUM HYDROXIDE 30 ML UDCUP PO PRN (11:04)
[2018-09-16] MEDS: SUCRALFATE 1 GM TAB PO SCH ×3 (11:22→21:25)
[2018-09-16] MEDS: amLODIPine BESYLATE 5 MG TAB PO SCH (11:22)
--- NOTE | 2018-09-16 13:44 | ASMTCMCOM ---
CM Note CM Note Notes: [facility] and [facility] is able to accept pt. Pt would like to discharge to [facility]. GI has been consulted and pt will be scoped tomorrow. Per [facility], pt needs to have a formed stool for 48hrs prior to d/c and no nausea. CM to follow. Plan: [facility] Date Signed: 09/16/2018 01:44 PM Electronically Signed By:KARLOS Yeager
[2018-09-16] MEDS: NS 1,000 ML IV SCH (19:13)
[2018-09-16] MEDS: SENNOSIDES/DOCUSATE SODIUM TAB PO SCH (21:25)
[2018-09-16] MEDS: VANCOMYCIN 125 MG/2.5 ML UDL PO SCH (21:25)
[2018-09-17] MEDS: HEPARIN 5,000 UNIT/0.5 ML INJ SC SCH (06:22)
[2018-09-17] MEDS: VANCOMYCIN 125 MG/2.5 ML UDL PO SCH ×4 (06:23→19:52)
[2018-09-17] MEDS: NS 1,000 ML IV SCH ×2 (08:47→19:52)
[2018-09-17] MEDS: FOLIC ACID 1 MG TAB PO SCH (08:48)
[2018-09-17] MEDS: THIAMINE HCL 100 MG TAB PO SCH (08:48)
[2018-09-17] MEDS: amLODIPine BESYLATE 5 MG TAB PO SCH (08:48)
[2018-09-17] MEDS: PANTOPRAZOLE SODIUM 40 MG TAB PO SCH ×2 (08:48→19:52)
[2018-09-17] MEDS: MULTIVITAMINS 1 EACH TAB PO SCH (08:53)
[2018-09-17] MEDS: SUCRALFATE 1 GM TAB PO SCH ×4 (08:53→19:53)
--- NOTE | 2018-09-17 09:31 | PDANEPAE ---
ANE History of Present Illness N/V/diarrhea ANE Past Medical History - Cardiovascular History Hx Hypertension: Yes Hx Arrhythmias: No Hx Chest Pain: Yes Hx Coronary Artery / Peripheral Vascular Disease: No Hx CHF / Valvular Disease: No Cardiovascular History Comment: ECHO normal 09/16 - Pulmonary History Hx COPD: No Hx Asthma/Reactive Airway Disease: No Hx Recent Upper Respiratory Infection: No Hx Oxygen in Use at Home: No Hx Sleep Apnea: Yes - Endocrine History Hx Diabetes: No Hypothyroid: No Hyperthyroid: No Obesity: no - Renal History Hx Renal Disorders: Yes Renal History Comment: ARF - Liver History Hepatic History Comment: EtOH abuse - GI History Hx Gastrointestinal Disorders: Yes Gastrointestinal History Comment: C diff - Chronic Pain History Chronic Pain: No ANE Review of Systems Review of systems is: negative Review of Systems: ANE Patient History - Allergies Allergies/Adverse Reactions: No Known Allergies Allergy (Unverified 09/13/18 17:17) - Home Medications Home medications: home medication list seen and reviewed Home Medications: FLUoxetine [Prozac 20 MG (*)] 20 mg PO DAILY 09/13/18 [Last Taken Unknown] Lisinopril [Zestril 20 mg (*)] 20 mg PO DAILY 09/13/18 [Last Taken Unknown] - NPO status NPO Status: no food or drink >8 hours - Smoking Hx Smoking Status: Former smoker - Alcohol Use Alcohol Use: Heavy - Family Anes Hx Family Anes Hx: none ANE Labs/Vital Signs - Labs Result Diagrams: 09/15/18 03:14 09/16/18 03:32 - Vital Signs Blood Pressure: 162/94 Heart Rate: 87 Respiratory Rate: 16 O2 Sat (%): 96 Height: 170.18 cm Weight: 68.039 kg ANE Physical Exam - Airway Neck exam: FROM Mallampati Score: Class 2 Mouth exam: normal dental/mouth exam - Pulmonary Pulmonary: no respiratory distress, clear to auscultation - Cardiovascular Cardiovascular: regular rate and rhythym, no murmur, rub, or gallop - ASA Status ASA Status: III ANE Anesthesia Plan Anesthesia Plan: GA with mask
[2018-09-17] MEDS ORDERED: PROPOFOL 200 MG/20 ML VIAL ONE ×2 (09:53→10:23)
[2018-09-17] MEDS ORDERED: LIDOCAINE 2% 2 ML INJ ONE ×3 (09:53→10:22)
[2018-09-17] MEDS ORDERED: LR 1,000 ML IV ONE (10:09)
[2018-09-17] MEDS ORDERED: NALOXONE HCL 0.4 MG/ML INJ IVP PRN (10:35)
--- NOTE | 2018-09-17 10:35 | POSTANESTH ---
Post Anesthetic Evaluation Cardiovascular Status: Normal, Stable Respiratory Status: Normal, Stable Level of Consciousness/Mental Status: Can Participate in Eval Pain Control: Adequate, Prn Tx Ordered Nausea/Vomiting Control: Adequate, Prn Tx Ordered Complications Possibly Related to Anesthesia: None Noted
--- NOTE | 2018-09-17 10:46 | GIREPORT ---
[facility] Surgical Services - Endoscopy Department Patient Name: Ge Jaime Procedure Date: 09/17/2018 9:48 AM Patient Type: Inpatient Attending MD/ ER Physician: José Rojo MD Procedure: Upper GI endoscopy Indications: Dysphagia, Odynophagia, Abnormal UGI series Providers: José Rojo MD Medicines: General Anesthesia Complications: No immediate complications. Description of Procedure: After obtaining informed consent, the endoscope was passed under direct vision. Throughout the procedure, the patient's blood pressure, pulse, and oxygen saturations were monitored continuously. The Endoscope was intro duced through the mouth, and advanced to the third part of duodenum. The uppe r GI endoscopy was accomplished without difficulty. The patient tolerated th e procedure well. Findings: LA Grade D (one or more mucosal breaks involving at least 75% of esopha geal circumference) esophagitis with no bleeding was found in the entire esophagus. Shallow ulcerations of distal esophagus with black eschars. No lumenal abnormalities to explain nodular lesion seen on Ba swallow. A large hiatal hernia was present. The gastric antrum was normal. Biopsies were taken with a cold forceps for histology. Two non-bleeding cratered duodenal ulcers with no stigmata of bleeding were found in the duodenal bulb. The largest lesion was 10 mm in largest dimension. The second portion of the duodenum and third portion of the duodenum we re normal. Estimated Blood Loss: Estimated blood loss: none. Post Op Diagnosis: - LA Grade D reflux, chronic and erosive esophagitis. Likely protruding abnormality seen on Ba Swallow was an adherant clot which has since rel eased. - Large hiatal hernia. - Normal antrum. Biopsied. - Multiple non-bleeding duodenal ulcers with no stigmata of bleeding. - Normal second portion of the duodenum and third portion of the duoden um. Recommendation: - Return patient to [facility] for ongoing care. - Use Protonix (pantoprazole) 40 mg PO BID for 2 months. - Await pathology results. - Repeat upper endoscopy in 2 months to check healing. - I will sign off case today, please call me for any new GI issues. - The findings and recommendations were discussed with the patient. Attending Participation: I personally performed the entire procedure. José Rojo MD José Rojo MD 09/17/2018 10:46:11 AM This report has been signed electronicallyJosé Rojo MD Number of Addenda: 0 Note Initiated On: 09/17/2018 9:48 AM [email or web address]
--- NOTE | 2018-09-17 10:47 | GCON ---
[f rep st] CONSULTATION GI CONSULTATION DATE OF CONSULTATION: 09/17/2018 REFERRING PHYSICIAN: Tyson Alejandro MD REASON FOR CONSULTATION: Dysphagia and abnormal barium swallow. HISTORY OF PRESENT ILLNESS: The patient is a 68-year-old gentleman who was admitted to [facility] on 09/13/2018, with complaints of nausea , vomiting, diarrhea, and chest pain with swallow. The patient had is homeless and has chronic alcohol abuse. He is seen recently at [facility]. He has had a 1-week history of nausea, vomiting, and diarrhea. He does have chronic heartburn for many years. He has never had an upper endoscopy. He is followed at [facility] for hypertension. MEDICATIONS: Present medications during this admission, include Norvasc 5 mg p.o. daily, folic acid 1 mg p.o. daily, Zofran 5 mg IV q.4 hours p.r.n. nausea, vomiting, Protonix 40 mg p.o. b.i.d., Carafate 1 g p.o. a.c. and q.h.s., vancomycin 125 mg p.o. t.i.d. ALLERGIES: He has no known drug allergies. PAST MEDICAL HISTORY: Significant for hypertension and thought disorder. Does have a history of alcohol abuse and withdrawal symptoms in the past, as well as history of alcoholic hepatitis. PAST SURGICAL HISTORY: Unremarkable. FAMILY HISTORY: Negative for GI malignancies. No prior colonoscopy. SOCIAL HISTORY: He is a former smoker (heavy), has not smoked in several years. He is a heavy alcohol consumer. He is homeless, resides at [facility]. REVIEW OF SYSTEMS: Significant for fatigue, diarrhea, nausea, vomiting, heartburn, otherwise negative for comprehensive review of systems on my examination today. PHYSICAL EXAMINATION: VITAL SIGNS: Temperature is 96.9, pulse is 87 regular, blood pressure 175/100, respiratory rate is 16, O2 saturation 95% on 2 L per nasal cannula. GENERAL: Dishevelled appearing gentleman lying in bed, in no apparent distress. INTEGUMENT: Clear. HEENT: Head: Atraumatic, normocephalic. Pupils equal, round, reactive to light. EOMs intact. Sclerae nonicteric. Nares patent. Mucous membranes moist. Dentition fair. NECK: Supple. Trachea midline. LYMPHATIC: No cervical or axillary adenopathy palpated. PULMONARY: Lungs clear to percussion, auscultation. CARDIOVASCULAR : Regular rhythm, rate. Normal S1, S2 without murmur. Peripheral pulses strong bilaterally. No pedal edema. GASTROINTESTINAL: Abdomen supple. Positive bowel sounds. No liver, spleen tip palpable. No masses or tenderness noted. No fluid wave noted. EXTREMITIES: Without deformity. NEURO: Patient was alert, oriented x3. No focal neurologic deficits. LABORATORY/IMAGING: White count 8.94, hemoglobin 12.3, hematocrit 37.5, MCV 104.7, MCHC 32.8, platelets 155,000. Sodium 139, potassium 3.3, chloride 107, CO2 is 25, anion gap 7, BUN 30, creatinine 1.1, glucose 79, calcium 8.1. Urine tox screen was negative, except for benzodiazepines. Stool was C difficile toxin positive per PCR. Esophagram performed on 09/16/2018, revealed mucosal mass or polyp in the mid esophagus, approximately 1 cm x 3 cm mild mucosal irregularity of the distal esophagus consistent with esophagitis and moderate to large hiatal hernia. IMPRESSION: 1. Dysphagia with esophageal mass on esophagram, rule out esophageal cancer. 2. Hypertension by history and mildly hypertensive today. 3. Chronic alcoholism. 4. Clostridium difficile toxin positive diarrhea. RECOMMENDATIONS: 1. N.p.o. 2. EGD with propofol anesthesia today. 3. PO vancomycin for Clostridium difficile toxin positive diarrhea. 4. Would recommend screening colonoscopy as an outpatient. /[id number]/MODL MTDD
[2018-09-17] MEDS ORDERED: HYDROCODONE/APAP 5/325 TAB ONE (10:57)
[2018-09-17] MEDS: HYDROCODONE/APAP 5/325 TAB PO PRN ×3 (10:58→19:53)
[2018-09-17] MEDS: SENNOSIDES/DOCUSATE SODIUM TAB PO SCH ×2 (11:34→19:53)
[2018-09-17] MEDS ORDERED: amLODIPine BESYLATE 5 MG TAB PO SCH (11:48)
--- NOTE | 2018-09-17 11:48 | ASMTCMCOM ---
CM Note CM Note Notes: Pts case discussed in tx rounds. Pt was tested positive for cdiff yesterday. Pt started ivabx. Pt will most likely d/c over the weekend to [facility]. [facility] staff understands that pt needs to have a solid stool 48hrs prior to admission to SNF. CM to follow. Date Signed: 09/17/2018 11:48 AM Electronically Signed By:KARLOS Yeager
--- NOTE | 2018-09-17 11:49 | HOSPPROG ---
Hospitalist Progress Note Assessment/Plan: 68 yo M with PMH of etoh abuse, homelessness presenting with c/o n/v/d x 1 week with NATALIA and more recent development of chest pain due to GI source. #Dysphagia with chronic erosive esophagitis: PPI BID x 8 weeks. Carafate with meals. F/u pathology results. Repeat EGD in 2 months. #NATALIA: Prerenal/dehydration. Resolved. Holding ACEi. #C diff colitis: First occurrence. Started on PO vancomycin 125mg qid day 07/05. Contact precautions. #Chest pain: D/t dysphagia. Cards saw, no ischemic eval needed. CTA neg for PE. #Acute metabolic encephalopathy: Resolved. Unclear etiology, ? dehydration and benzos. #Etoh abuse: Reports he quit >1 week ago. Not in withdrawal. CIWA stopped. #HTN: Holding lisinopril. Increase amlodipine to 10mg daily. #Homelessness: CM aware, previously living in retirement #Anemia: Dilutional. #Hiatal hernia #Non-bleeding duodenal ulcers: Noted on EGD. Mgmt as above. #Deconditioning: PT/OT recommending SNF, CM working on referrals VTE ppx: H Dispo: Remain inpatient, possibly dc next day or so to SNF pending clinical improvement and sustained resolution of diarrhea Subjective: Had a loose bowel movement yesterday. None today. Still with some swallowing difficutly. Objective: Vital Signs Temp Pulse Resp BP Pulse Ox 36.6 C 64 15 126/62 H 97 09/17/18 11:28 09/17/18 11:28 09/17/18 11:28 09/17/18 11:28 09/17/18 11:28 Microbiology 09/16/18 15:24 Gastrointestinal Tract Panel (PCR) - Final Stool Clostridium Difficile Detected 09/14/18 03:45 Urine Culture - Final Urine,Clean Catch Escherichia Coli Three [place] Types Laboratory Results 09/15/18 03:14 09/16/18 03:32 09/16/18 09/17/18 09/18/18 05:59 05:59 05:59 Intake Total 1999 250 380 Output Total 1440 1625 430 Balance 560 -1375 -50 - Physical Exam Constitutional: no apparent distress, unkempt Eyes: PERRL, anicteric sclera, EOMI Ears, Nose, Mouth, Throat: moist mucous membranes, hearing normal, ears appear normal, no oral mucosal ulcers Cardiovascular: regular rate and rhythym, no murmur, rub, or gallop Respiratory: no respiratory distress, no rales or rhonchi, clear to auscultation Gastrointestinal: normoactive bowel sounds, soft, non-tender abdomen, no palpable masses Genitourinary: no bladder fullness, no bladder tenderness, no renal bruits Skin: no rashes or abrasions, no fluctuance, no induration Musculoskeletal: full muscle strength, no muscle tenderness, normal joint ROM Neurologic: AAOx3 Psychiatric: interacting appropriately ICD10 Worksheet Patient Problems: Problems Problem Status Onset Acute kidney injury Acute Chest pain Acute Alcoholic intoxication Acute Aspiration pneumonia Acute Respiratory failure Acute Severe sepsis Acute
[2018-09-17] MEDS ORDERED: amLODIPine BESYLATE 5 MG TAB PO ONE (12:00)
[2018-09-18] MEDS: HYDROCODONE/APAP 5/325 TAB PO PRN ×5 (00:33→22:24)
[2018-09-18] MEDS: VANCOMYCIN 125 MG/2.5 ML UDL PO SCH ×4 (05:45→20:04)
[2018-09-18] MEDS: NS 1,000 ML IV SCH (06:25)
[2018-09-18] MEDS ORDERED: POTASSIUM CL 20 MEQ/15 ML UDCUP PO ONE (08:41)
[2018-09-18] MEDS: THIAMINE HCL 100 MG TAB PO SCH (09:14)
[2018-09-18] MEDS: FOLIC ACID 1 MG TAB PO SCH (09:15)
[2018-09-18] MEDS: SUCRALFATE 1 GM TAB PO SCH ×4 (09:16→20:03)
[2018-09-18] MEDS: MULTIVITAMINS 1 EACH TAB PO SCH (09:16)
[2018-09-18] MEDS: PANTOPRAZOLE SODIUM 40 MG TAB PO SCH ×2 (09:17→20:03)
[2018-09-18] MEDS: ENOXAPARIN 40 MG/0.4 ML SYR SC SCH (09:26)
[2018-09-18] MEDS: SENNOSIDES/DOCUSATE SODIUM TAB PO SCH ×2 (10:50→22:25)
--- NOTE | 2018-09-18 13:48 | HOSPPROG ---
Hospitalist Progress Note Assessment/Plan: 68 yo M with PMH of etoh abuse, homelessness presenting with c/o n/v/d x 1 week with NATALIA and more recent development of chest pain due to GI source. #Dysphagia with chronic erosive esophagitis: Minimal PO intake. PPI BID x 8 weeks. Carafate with meals. Path pending. Repeat EGD in 2 months. #NATALIA: Prerenal/dehydration. Resolved. Holding ACEi. #C diff colitis: First occurrence. Started on PO vancomycin 125mg qid day 08/05. Contact precautions. Well formed stool 09/18. #Chest pain: D/t dysphagia. Cards saw, no ischemic eval needed. CTA neg for PE. #Acute metabolic encephalopathy: Resolved. Unclear etiology, ? dehydration and benzos. #Etoh abuse: Reports he quit >1 week ago. Not in withdrawal. CIWA stopped. #HTN: Holding lisinopril. Increase amlodipine to 10mg daily. #Homelessness: CM aware, [facility] #Anemia: Dilutional. #Hiatal hernia #Non-bleeding duodenal ulcers: Noted on EGD. Mgmt as above. #Deconditioning: PT/OT recommending SNF, has been accepted at [facility] VTE ppx: [facility] Dispo: Remain inpatient, possibly dc tomorrow or Thursday Subjective: Still with some swallowing difficulty, not taking much PO. Had well formed stool today. Per RN, IV fell out and appears red at site. Objective: Vital Signs Temp Pulse Resp BP Pulse Ox 37.2 C 90 20 121/81 H 97 09/18/18 12:10 09/18/18 12:10 09/18/18 12:10 09/18/18 12:10 09/18/18 12:10 Microbiology 09/16/18 15:24 Gastrointestinal Tract Panel (PCR) - Final Stool Clostridium Difficile Detected Laboratory Results 09/15/18 03:14 09/18/18 03:25 09/17/18 09/18/18 09/19/18 05:59 05:59 05:59 Intake Total 250 2980 Output Total 1625 1180 Balance -1375 1800 - Physical Exam Constitutional: no apparent distress, appears nourished, not in pain Eyes: PERRL, anicteric sclera, EOMI Ears, Nose, Mouth, Throat: moist mucous membranes, hearing normal, ears appear normal, no oral mucosal ulcers Cardiovascular: regular rate and rhythym, no murmur, rub, or gallop, No edema Respiratory: no respiratory distress, no rales or rhonchi, clear to auscultation Gastrointestinal: normoactive bowel sounds, soft, non-tender abdomen, no palpable masses Genitourinary: no bladder fullness, no bladder tenderness, no renal bruits Skin: no rashes or abrasions, no fluctuance, no induration Musculoskeletal: full muscle strength, no muscle tenderness, normal joint ROM Neurologic: AAOx3 Psychiatric: interacting appropriately ICD10 Worksheet Patient Problems: Problems Problem Status Onset Acute kidney injury Acute Chest pain Acute Alcoholic intoxication Acute Aspiration pneumonia Acute Respiratory failure Acute Severe sepsis Acute
[2018-09-19] MEDS: HYDROCODONE/APAP 5/325 TAB PO PRN ×3 (03:41→12:22)
[2018-09-19] MEDS: SUCRALFATE 1 GM TAB PO SCH ×2 (06:57→12:22)
[2018-09-19] MEDS: VANCOMYCIN 125 MG/2.5 ML UDL PO SCH ×2 (06:57→12:22)
[2018-09-19] MEDS: ENOXAPARIN 40 MG/0.4 ML SYR SC SCH (07:55)
[2018-09-19] MEDS: THIAMINE HCL 100 MG TAB PO SCH (07:57)
[2018-09-19] MEDS: MULTIVITAMINS 1 EACH TAB PO SCH (07:59)
[2018-09-19] MEDS: PANTOPRAZOLE SODIUM 40 MG TAB PO SCH (08:00)
[2018-09-19] MEDS: SENNOSIDES/DOCUSATE SODIUM TAB PO SCH (08:00)
[2018-09-19] MEDS: FOLIC ACID 1 MG TAB PO SCH (08:00)
--- NOTE | 2018-09-19 11:43 | PDIAF ---
- Diagnosis Code Status: Full Code - Medication Management Discharge Medications: electronically signed and located in the Home Medication List. PICC Care - Routine: N/A - Orders Services needed: Physical Therapy, Occupational Therapy Isolation Type: CDIFF Isolation Diet Recommendation: no restrictions on diet Diet Texture: Regular Texture Diet, Thin Liquids, Meds Whole in Puree Berry: Not applicable Activity/Weight Bearing Restrictions: None Additional Instructions: Medication changes: 1. Stopped lisinopril 2. Started amlodipine 10mg daily 3. Continue PO vancomycin 125mg 4 times daily through 10/01/2018 to complete a 14 day course for your C diff. 4. Continue protonix 40mg twice daily through 11/20/2018. 5. Continue sucralfate with meals for 5 more days (finish 09/24/2018). You will need a repeat EGD in 2 months (beginning of November). - Follow Up Care Current Providers and Referrals: KERRY GONZALEZ [Other] - As per Instructions
--- NOTE | 2018-09-19 11:44 | PDDCSUM ---
Discharge Summary Discharge Summary: Date of Admission: 09/13/2018 Date of Discharge: 09/18/2018 Consultants: cardiology, gastroenterology Studies: TTE, barium esophagram Procedures: EGD Discharge Diagnoses: 1. Acute kidney injury 2. C diff colitis 3. Dysphagia, secondary to 4. Chronic and erosive esophagitis 5. Acute metabolic encephalopathy, resolved 6. EtOH abuse, no e/o withdrawal (quit 1 week prior to this admission) 7. HTN 8. Anemia, dilutional 9. Homelessness 10. Deconditioning Brief Hospital Course: 68 yo M with PMH of etoh abuse, homelessness presented with one week of nausea, vomiting, and diarrhea. He had been living in a retirement and other people had been sick. He was confused and significantly dehydrated on arrival. He had an NATALIA (creatinine of 4) on arrival that resolved with fluid resuscitation. His mental status also normalized once he was hydrated. He was diagnosed with C diff colitis and started on appropriate treatment with PO vancomycin. This is his first episode of such. He will complete a 14 days course of antibiotics. He has been diarrhea free for >48 hours prior to discharge. He did endorse significant dysphagia. Initially, this was thought to be chest pain so cardiology was consulted. He had a minimally elevated troponin of 0.05 ( likely d/t dehydration). An echocardiogram was normal. Cardiology did not think that any ischemic evaluation was necessary. He then underwent a barium esophagram that was abnormal so GI was consulted and they performed an EGD which showed LA grade D reflux, chronic and erosive esophagitis, a large hiatal hernia, and multiple non-bleeding duodenal ulcers. He was started on a PPI. His PO intake gradually improved. Due to decondtioning, PT and OT were recommending SNF placement. He was accepted at [facility] and discharged to this facility. Medications: Please refer to EMR for complete list. We made the following changes: 1. Stopped lisinopril 2. Started amlodipine 10mg daily 3. Continue PO vancomycin 125mg 4 times daily through 10/01/2018 to complete a 14 day course for your C diff. 4. Continue protonix 40mg twice daily through 11/20/2018. 5. Continue sucralfate with meals for 5 more days (finish 09/24/2018). Follow Up Plan: 1. Needs repeat EGD late October/early November to monitor for esophageal healing 2. PCP visit in 1-2 weeks 3. Follow up pathology results of EGD biopsies Physical Exam: Vitals reviewed, afebrile. Alert and oriented, rrr without murmur , lungs clear, abdomen soft, no leg edema or JVD. Slight induration at left antecubital peripheral IV site without significant erythema or drainage.
--- NOTE | 2018-09-19 12:39 | ASMTDCNOTE ---
Case Management Discharge Discharge Order Complete? Answers: Yes Patient to Obtain Answers: Other Notes: [facility] Medications Transportation Arranged Answers: Other Notes: [facility] Transport will Pick (Date 09/19/2018 12:00 AM & Time) Case Management Transport Answers: Yes Notes: PCS for [facility] Form Complete Faxed Final Orders Answers: Yes Notes: [facility] Agency/Facility Transfer Answers: Yes Notes: [facility] Report Printed & Faxed to Receiving Agency Family Notified Answers: No Notes: no family Discharge Comments Notes: Patient to d/c to [facility] today. Vicente with [facility] has set up transport for 3:00 PM with [facility].Patient will go wheelchair with 2L O2. Vicente's number is [phone]. Discharge summaries have been forwarded to [facility]. Report called by patient's nurse, Melissa to [phone]. Patient states he does not have family. No further needs. Date Signed: 09/19/2018 12:39 PM Electronically Signed By:Lisa Bonds LCSW
[2018-09-19 12:42] VITALS: BP 115/60
--- NOTE | 2018-09-19 12:42 | ASDISCHSUM ---
Discharge Information Plan Status:SNF Medically Cleared to Leave:09/19/2018 Discharge Date:09/19/2018 CM D/C Disposition:[facility]ison Facility ADT D/C Disposition:Prison Facility Projected Discharge Date:09/16/2018 11:00 AM Transportation at D/C:Wheelchair Van Discharge Delay Reason: Follow-Up Date:09/16/2018 11:00 AM Discharge Slot:2 - 12:01 pm - 18:00 pm Final Diagnosis:Acute kidney injury, C-Diff Placement Information Referral Type:*Halfway/SNF Referral ID:[id number] Provider Name:[facility] Address 1:[address] Address 2: City:[place] Selection Factors: State:[place] Patient Contact Information Contact Name:CALE Relationship: Address: Home Phone: Work Phone: City: [facility] Phone: [facility] Code: Email: Financial Information Financial Class:Medicare Primary Plan Desc:MEDICARE INPATIENT Primary Plan Number:[id number] Secondary Plan Desc:MED[place] Secondary Plan Number:[id number] Assessment Information LACE LACE Acuity / Level of Answers: Yes Care: Did the patient have an inpatient admission? Comorbidities - select Answers: Other Notes: HTN all that apply # of Emergency department Answers: 5-8 visits in the last 6 months Social determinants Answers: History of substance abuse (ETOH, street drugs, prescription drugs, etc.) Homelessness (street, senior care) Mental health diagnosis (anxiety, depression, pers onality disorders, etc.) Score: 17 Date Signed: 09/14/2018 09:19 AM Electronically Signed By:Marni Ferguson [facility] CM Progress Note CM Note CM Note Notes: Pts case discussed in tx rounds. Pt is a 68 y/o man admitted for acute renal failure and chest pain. Therapies have been ordered and awaiting recommendations. Pt has a hx of etoh abuse. CM attempted to meet w/ pt but he was asleep. CM made a referral to [facility]. CM left etoh resources and educational matieral in his room. CM to follow up tomorrow. Date Signed: 09/14/2018 02:57 PM Electronically Signed By:KARLOS Yeager CAGE Questionnaire CAGE Do you feel you ought to Answers: Yes cut down on your drinking or drug use? Do people annoy you by Answers: Yes criticizing your drinking or drug use? Do you feel guilty about Answers: Yes your drinking or drug use? Do you drink or use drugs Answers: No first thing in the morning ([employer])? Date Signed: 09/16/2018 09:18 AM Electronically Signed By:KARLOS Yeager [facility] Progress Note CM Note POLY Note Notes: CM met w/ pt for dispo planning. PT is recommending SNF. CM provided pt w/ senior blue book. Pt is agreeable to going to a SNF and interested in LTC bed. Pt also has medicaid. Referrals sent to [facility], [facility], [facility], and [place]. CAGE completed. Pt reports that he would like to get sober. CM to follow. Plan: TBD Date Signed: 09/16/2018 09:38 AM Electronically Signed By:KARLOS Yeager [facility] CM Progress Note CM Note CM Note Notes: [facility] and [facility] is able to accept pt. Pt would like to discharge to [facility]. GI has been consulted and pt will be scoped tomorrow. Per [facility], pt needs to have a formed stool for 48hrs prior to d/c and no nausea. CM to follow. Plan: [facility] Date Signed: 09/16/2018 01:44 PM Electronically Signed By:KARLOS Yeager [facility] CM Progress Note CM Note CM Note Notes: Pts case discussed in tx rounds. Pt was tested positive for cdiff yesterday. Pt started ivabx. Pt will most likely d/c over the weekend to [facility]. [facility] staff understands that pt needs to have a solid stool 48hrs prior to admission to SNF. CM to follow. Date Signed: 09/17/2018 11:48 AM Electronically Signed By:KARLOS Yeager Case Management Discharge Plan Note Case Management Discharge Discharge Order Complete? Answers: Yes Patient to Obtain Answers: Other Notes: [facility] Medications Transportation Arranged Answers: Other Notes: [email or web address] Transport will Pick (Date 09/19/2018 12:00 AM & Time) Case Management Transport Answers: Yes Notes: PCS for [email or web address] Form Complete Faxed Final Orders Answers: Yes Notes: [facility] Agency/Facility Transfer Answers: Yes Notes: [facility] Report Printed & Faxed to Receiving Agency Family Notified Answers: No Notes: no family Discharge Comments Notes: Patient to d/c to [facility] today. Vicente with [facility] has set up transport for 3:00 PM with [email or web address].Patient will go wheelchair with 2L O2. Vicente's number is [phone]. Discharge summaries have been forwarded to [facility]. Report called by patient's nurse, Melissa to [phone]. Patient states he does not have family. No further needs. Date Signed: 09/19/2018 12:39 PM Electronically Signed By:Lisa Bonds LCSW Intervention Information Intervention Type:*IM-Signed Date of Service:09/16/2018 10:15 AM Patient Type:Inpatient Staff Member:Marni Ferguson Hours: Discipline: Severity: Comment:
== END 2018-09-19 15:22 | DRG 371 ==
LOC: EDUNIT# → EDBD → F2W 19:36
PROVIDERS: ADMIT Internal Medicine; ATTEND Internal Medicine
PROC: 0DB68ZX Excision of Stomach, Via Natural or Artificial Opening Endoscopic, Diagnostic (ICD-10-PCS; principal; 2018-09-17 10:00)
DX: A04.72 Enterocolitis due to Clostridium difficile, not specified as recurrent (principal); G93.41 Metabolic encephalopathy; N17.9 Acute kidney failure, unspecified; J98.11 Atelectasis; D64.9 Anemia, unspecified; K20.9 Esophagitis, unspecified; K44.9 Diaphragmatic hernia without obstruction or gangrene; K26.9 Duodenal ulcer, unspecified as acute or chronic, without hemorrhage or perforation; I10 Essential (primary) hypertension; F10.20 Alcohol dependence, uncomplicated; Z87.891 Personal history of nicotine dependence; Z59.0 Homelessness; Z87.01 Personal history of pneumonia (recurrent)
CPT/HCPCS: 80307; 84484-ER; 92610-GN; 96374; 97116-GP; 97161-GP; 97165-GO; 97530-GO; 97530-GP; 97535-GO; G0480; J1644; J1650; J2060; J2405; J2704; J3411